=== PATIENT | female | born 1930 | race Caucasian/White ===

== ENCOUNTER 2017-01-02 13:55 | Inpatient (IN) | payer MEDICARE, OTHER ==
[2017-01-02] VITALS (21 sets, daily range): BP systolic 103–146; BP diastolic 53–113; PULSE 65–88; RESP 9–25; Ht 152.4 cm; Wt 70.5 kg
[~2017-01-02] VITALS: Ht 152.4 cm; Wt 70.5 kg
[~2017-01-02 13:55] MED LIST: ACET325T33 PO; AZIT250T94 PO
[2017-01-02] MEDS ORDERED: ASPI-664 PO (15:00)
[2017-01-02] MEDS ORDERED: ATEN-51 PO (15:16)
[2017-01-02] MEDS ORDERED: MECL-77 PO (15:16)
[2017-01-02] MEDS ORDERED: ESOM40CA PO (15:16)
[2017-01-02] MEDS ORDERED: LORA1TAB PO (15:16)
[2017-01-02] MEDS ORDERED: DONE5TAB32 PO (15:16)
[2017-01-02] MEDS ORDERED: IRBE1TAB35 PO (15:16)
[2017-01-02] MEDS ORDERED: TRAM50TA2 PO (15:16)
[2017-01-02] MEDS ORDERED: HYDR-906 PO (15:20)
[2017-01-02] MEDS ORDERED: ACET-2047 PO (15:20)
[2017-01-02] MEDS ORDERED: ONDA4DIS4 IV (15:20)
[2017-01-02] MEDS ORDERED: NITROGLYCERIN (IC) 100 MCG/ML INJ ONE (17:20)
[2017-01-02] MEDS ORDERED: HEPARIN 1000 UNITS/ML 10 ML INJ ONE (17:20)
[2017-01-02] MEDS ORDERED: LIDOCAINE 1% (MDV) 20 ML INJ ONE (17:20)
[2017-01-02] MEDS ORDERED: SOD CHLORIDE 0.9% 500 ML ONE (17:21)
[2017-01-02] MEDS ORDERED: VERAPAMIL 5 MG INJ ONE (17:21)
[2017-01-02] MEDS ORDERED: MIDAZOLAM 1 MG/ML 2 ML INJ ONE (17:22)
[2017-01-02] MEDS ORDERED: IODIXANOL LOCM 100 ML BTL ONE ×3 (17:22→18:33)
[2017-01-02] MEDS ORDERED: FENTAnyl 50 MCG/ML VIAL ONE (17:22)
[2017-01-02] MEDS ORDERED: BIVALIRUDIN 250MG /NS 50 ML 50 ML IVPB ONE (18:11)
[2017-01-02] MEDS ORDERED: CLOPIDOGREL 300 MG TAB ONE (18:17)
[2017-01-02] MEDS ORDERED: DIPHENHYDRAMINE 50 MG INJ ONE (18:47)
[2017-01-02] MEDS ORDERED: morphine 2 MG INJ IV PRN (19:30)
[2017-01-02] MEDS ORDERED: ONDANSETRON 4 MG INJ IV PRN (19:30)
[2017-01-02] MEDS ORDERED: ACETAMINOPHEN 325 MG TAB PO PRN (19:30)
[2017-01-02] MEDS ORDERED: ATORVASTATIN 40 MG TAB PO SCH (21:00)
[2017-01-02] MEDS ORDERED: SOD CHLORIDE 0.9% 1,000 ML IV SCH (21:00)
[2017-01-03] VITALS (19 sets, daily range): BP systolic 81–127; BP diastolic 37–68; PULSE 60–87; RESP 13–23
--- NOTE | 2017-01-03 00:37 | OPR ---
Date/Time of Note Date/Time of Note DATE: 01/03/17 TIME: 00:15 Operative Report Free Text/Dictation Procedure Date: 01/02/2017 Procedures Performed: 1)Left heart catheterization with selective left and right coronary angiography. 2)Balloon angioplasty and stenting of the prox obtuse marginal 1 with a Synergy 2.25 x 24 drug eluting stent. 3)Balloon angioplasty and stenting of the prox Circumflex with a Synergy 2.75 x 12 drug eluting stent. Pre-operative Diagnosis:NSTEMI Post-operative Diagnosis:NSTEMI Indications:86 yo F with a h/o HTN who presented with chest/abdominal pain and was found to have an NSTEMI (trop peak 7) with normal EF. Description of Procedure: After informed consent, the patient was brought to the cardiac catheterization lab. The procedure site was prepped and draped in usual manner. The patient was premedicated with versed 0.5 mg and fentanyl 25 mcg. 2mL lidocaine was injected into the left wrist. Next using the posterior wall technique, the 6/5 dominican sheath was inserted into the left radial artery. Next using the JL3.5 and JR4, selective angiography of the left and right coronary arteries were obtained. The pigtail was then advanced into the ventricle and hemodynamics obtained. Left ventricle angiography was not obtained. The decision was made to proceed with PCI of the OM and Cx due to the occlusive nature of the lesions and the pt's NSTEMI. A 6 dominican JL .3.5 guide was advanced and engaged into the left coronary artery. After appropriate anticoagulation and antiplatelets were given, the BMW was attempted to advance past the OM occlusion but was not successful. This wire was then advanced into the Cx and CxPDA. Next the PT 2 LS angioplasty wire was advanced past the OM lesion. Next the 2.0 X 12 balloon was used to dotter the OM vessel and TWAN 1 flow was established. Next the vessel was dilated times 2 at a maximum of 10 delta. Subsequently, the Synergy 2.25 x 24 drug eluting stent was advanced to the lesion and deployed at 11 delta. Next the stent was post dilated with the 2.25 X 8 noncompliant balloon times 4 at a maximum of 14 delta. Next attention was directed to the Cx lesion. The same 2.25 x 8 noncompliant balloon was used to predilate the lesion over the PT2 LS wire times 1 at 12 delta. Next the Synergy 2.75 x 12 drug eluting stent was deployed at 11 delta once the BMW wire was removed. The two stents were not overlapped due to size mismatch. The Cx stent was dilated with a 3.0 x 8 balloon times 2 at a maximum of 12 at Final angiography revealed TWAN 3 flow, no edge dissection, and appropriate stent expansion of both stents. Next all equipment was removed and hemostasis was achieved by TR band. Findings: Anatomy/Hemodynamics: Left main:normal LAD:mid 50%, distal 60-70% Diagonal: very small diffusely disease vessel Circumflex: codominant vessel with prox 90% Obtuse marginal 1 : prox 100% CxPDA: normal RCA:small, codominant vessel with diffuse sequential up to 90% disease mid to distal followed by chronic total occlusion at the bifurcation and left-right collaterals LV angiography: not done LV-Ao: no gradient LVEDP:6 mmHg Contrast used: 150 mL Fluoroscopy time: 16 min Medications used: Radial cocktail: 2000 units heparin, 200 NTG, 2.5 verapamil Versed 1mg Fentanyl 25 mcg ASA 325mg plavix 600mg Angiomax bolus plus drip NTG IC 200 x 2 Equipment used: 6 dominican JL 3.5 guide BMW and PT 2 LS angioplasty wire 2 x 12 balloon Synergy 2.25 x 24 drug eluting stent (OM) Synergy 2.75 x 12 drug eluting stent (Cx) 2.25 x 8 and 3.0 x 8 noncompliant balloon Assessment: NSTEMI s/p PCI of occluded proximal OM and severely diseased proximal Cx Intermediate LAD disease Diffuse RCA disease with distal 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
[2017-01-03 07:50] LABS: ADD SCAN DIFF NO
[2017-01-03 08:02] LABS: BASOPHILS % 0.2 % (0.0-2.0); EOSINOPHILS # 0.1 10^3/ul (0.0-0.5); EOSINOPHILS % 0.8 % (0.0-7.0); HEMATOCRIT 36.9 % (37.0-47.0); HEMOGLOBIN 12.1 g/dl (12.0-16.0); LYMPHOCYTES # 2.4 10^3/ul (0.8-2.9); LYMPHOCYTES % 24.3 % (15.0-51.0); MEAN CORPUSCULAR HEMOGLOBIN 32.5 pg (29.0-33.0); MEAN CORPUSCULAR HGB CONC 32.8 g/dl (32.0-37.0); MEAN CORPUSCULAR VOLUME 99.2 fl (82.0-101.0); MEAN PLATELET VOLUME 11.2 fl (7.4-10.4); MONOCYTE # 0.9 10^3/ul (0.3-0.9); MONOCYTES % 8.9 % (0.0-11.0); NEUTROPHIL # 6.5 10^3/ul (1.6-7.5); NEUTROPHILS % 65.5 % (39.0-77.0); PLATELET COUNT 236 10^3/UL (140-415); RED BLOOD COUNT 3.72 10^6/ul (4.20-5.40); RED CELL DISTRIBUTION WIDTH 13.2 % (11.5-14.5); WHITE BLOOD COUNT 9.9 10^3/ul (4.8-10.8)
[2017-01-03 08:15] LABS: CALCIUM 8.9 mg/dl (8.4-10.2); CREATININE 0.54 mg/dl (0.44-1.00); MAGNESIUM 1.8 mg/dl (1.7-2.5); POTASSIUM 3.7 mmol/L (3.5-5.1)
--- NOTE | 2017-01-03 08:50 | HP ---
DATE OF ADMISSION: 01/02/2017 CHIEF COMPLAINT: Non-ST elevation myocardial infarction. HISTORY OF PRESENT ILLNESS: This is an 86-year-old female with a past medical history of hypertensi on, history of GERD, history of vertigo, history of dementia, history of dyslipidemia who presents t o an outside hospital at [place] with nf0cyaduiny of epigastric pain. The patient stated that she has had ongoing epigastric pain for years, and which she has had previous workup for dyspepsia, which has been negative. However, over the last several days the pain has gotten worse and as a res ult she came to the emergency room for evaluation. Upon arrival to the outside hospital, the patien t had CT scan of the abdomen which showed diverticulosis without diverticulitis, otherwise unremarka ble. The patient, however, did have elevated troponins. She was admitted. The patient was ruled in for non-STEMI as her troponins elevated and peaked at 7. Patient was medically managed and transfe rred over to [facility] where she underwent cardiac catheterization by Dr. Adela cruz. The patient had a PCI with a drug-eluting stent to the proximal obtuse marginal as well as the proximal circumflex. Following the procedure, the patient was admitted to intensive care unit wher e she is resting comfortably without any complications. There has been no report of hemoptysis, hem atemesis or hematochezia. PAST MEDICAL HISTORY: History of hypertension, dyslipidemia, dyspepsia, dementia and anxiety disord er. PAST SURGICAL HISTORY: None. FAMILY HISTORY: Noncontributory. SOCIAL HISTORY: Does not drink, smoke or do drugs. ALLERGIES: None. MEDICATIONS: Have been reviewed and reconciled. REVIEW OF SYSTEMS: A 14-point review of systems was conducted. Pertinent positives stated in HPI, otherwise negative. PHYSICAL EXAMINATION: VITAL SIGNS: Blood pressure is 103/53, respirations 18, pulse 72, temperature 98.6. HEENT: Head is normocephalic. Pupils are reactive to light. NECK: Supple. HEART: Regular rate. LUNGS: Show diminished breath sounds at the base. ABDOMEN: Soft and nontender to palpation without rebound or guarding. EXTREMITIES: Negative for clubbing, cyanosis, no edema. DERMATOLOGIC: No rashes. MUSCULOSKELETAL: No joint effusions. NEUROLOGIC: No focal deficits. The patient's medications have been reviewed. LABORATORY DATA: Currently pending. Laboratory data from the outside hospital shows sodium 139, pot assium ____ , bicarbonate 30, chloride 103, BUN 14, creatinine 0.7. ASSESSMENT AND PLAN: This is an 86-year-old female who presents with: 1. Non-ST elevation myocardial infarction. The patient is status post cardiac catheterization with PCI and DS to the proximal obtuse marginal and proximal circumflex. Plan at this point is to jim carmichael current medical management with aspirin, Plavix, Lipitor, Coreg. Will follow up with cardiologi st, Dr. Conner for any further recommendations. Monitor closely. 2. Hypertension. Blood pressure is currently well controlled. Continue current blood pressure reg imen with Coreg. 3. Dyslipidemia. Continue statin therapy. 4. History of gastroesophageal reflux disease. The patient will be monitored. Would recommend pos sible H2 blockers. 5. Diverticulosis without evidence of diverticulitis. Continue to monitor. Please note I spent 25 minutes of face to face with the patient. The patient is FULL CODE. Dictated By: RUDDY EDWARDS/USMAN Conf#: [id number] DID#: [id number]
[2017-01-03] MEDS ORDERED: CLOPIDOGREL 75 MG TAB PO SCH (09:00)
[2017-01-03] MEDS ORDERED: ASPIRIN 81 MG TAB PO SCH (09:00)
--- NOTE | 2017-01-03 09:28 | CONS ---
Date/Time of Note Date/Time of Note DATE: 01/03/17 TIME: 09:25 Assessment/Plan Assessment/Plan Chief Complaint/Hosp Course NSTEMI: s/p PCI of occluded OM and 90% prox Cx. Doing well CAD: s/p PCI as above. Has investment underwriter of RCA and intermediate LAD disease which can be evaluated if recurrent symptoms as outpt HTN -ok for d/c -ASA 81mg -plavix 75mg -lipitor -coreg Problems: Consultation Date/Type/Reason Admit Date/Time January 02, 2017 at 19:28 Initial Consult Date Type of Consultation: Cardiology 24 HR Interval Summary Free Text/Dictation No o/n events. Chest pain resolved. No SOB. Exam/Review of Systems Vital Signs Vitals Vital Signs Date Time Temp Pulse Resp B/P Pulse Ox O2 Delivery O2 Flow Rate FiO2 01/03/17 08:00 97.9 72 14 111/60 97 Room Air 01/02/17 17:07 2.0 Intake and Output 01/02/17 01/02/17 01/03/17 15:00 23:00 07:00 Intake Total 250 ml 625 ml Output Total 300 ml 220 ml Balance -50 ml 405 ml Exam Constitutional: alert, oriented Psych: no complaints Head: normocephalic Neck: jvd Respiratory: clear to auscultation Cardiovascular: regular rate and rhythm, No edema Gastrointestinal: non-tender, soft Extremities: normal pulses Neurological: nl mental status, nl speech Results Result Diagram: 01/03/17 0735 01/03/17 0735 Results 24 hrs Laboratory Tests Test 01/03/17 07:35 White Blood Count 9.9 Red Blood Count 3.72 L Hemoglobin 12.1 Hematocrit 36.9 L Mean Corpuscular Volume 99.2 Mean Corpuscular Hemoglobin 32.5 Mean Corpuscular Hemoglobin Concent 32.8 Red Cell Distribution Width 13.2 Platelet Count 236 Mean Platelet Volume 11.2 H Neutrophils % 65.5 Lymphocytes % 24.3 Monocytes % 8.9 Eosinophils % 0.8 Basophils % 0.2 Nucleated Red Blood Cells % 0.0 Neutrophils # 6.5 Lymphocytes # 2.4 Monocytes # 0.9 Eosinophils # 0.1 Basophils # 0.0 Nucleated Red Blood Cells # 0.0 Sodium Level 137 Potassium Level 3.7 Chloride Level 105 Carbon Dioxide Level 28 Anion Gap 8 Blood Urea Nitrogen 13 Creatinine 0.54 Glucose Level 100 Calcium Level 8.9 Magnesium Level 1.8 Medications Medications Current Medications Miscellaneous Information (* Miscellaneous Pharmacy Order) HOLD all METFORMIN ... ONCE XX Last administered on 01/02/17 19:30; Admin Dose 1 EA; Start at 19:30; Stop 01/04/17 at 19:29 Acetaminophen (Tylenol Tab) 650 mg Q4H PRN PO NON-CARDIAC PAIN LEVEL (1-3); Start 01/02/17 at 19:30 Morphine Sulfate (morphine) 2 mg Q2H PRN IV FOR NON CARDIAC PAIN (4-10) Last administered on 01/03/17 01:46; Admin Dose 2 MG; Start 01/02/17 at 19:30 Ondansetron HCl 4 mg 4 mg Q4H PRN IV NAUSEA AND/OR VOMITING; Start 01/02/17 at 19:30 Sodium Chloride (NS) 1,000 ml @ 75 mls/hr [id number] IV Last administered on 01/02 22:18; Admin Dose 75 MLS/HR; Start 01/02/17 at 21:00; Stop 01/03/17 at 20: 59 Aspirin (Aspirin) 81 mg DAILY PO Last administered on 01/03/17 08:40; Admin Dose 81 MG; Start 01/03/17 at 09:00 Clopidogrel Bisulfate (plaVIX) 75 mg DAILY PO Last administered on 01/03/17 08 :40; Admin Dose 75 MG; Start 01/03/17 at 09:00 Carvedilol (Coreg) 6.25 mg BID PO Last administered on 01/03/17 08:40; Admin Dose 6.25 MG; Start 01/02/17 at 21:00 Atorvastatin Calcium (Lipitor) 40 mg HS PO Last administered on 01/02/17 22:19 ; Admin Dose 40 MG; Start 01/02/17 at 21:00 STEPHANY SWAIN January 03, 2017 09:28
--- NOTE | 2017-01-03 17:35 | RADRPT ---
Vent Rate: 75 bpm RR Interval: [address] Interval: 154 msec QRS Duration: 76 msec QT Interval: 420 msec QTC Interval: 469 msec P-R-T Theodore: 57 - -2 - 71 degrees Normal sinus rhythm Normal ECG Electronically Signed By: Luis Antonio Gomes [id number]
--- NOTE | 2017-01-04 08:42 | DS ---
DATE OF ADMISSION: 01/02/2017 DATE OF DISCHARGE: 01/03/2017 HOSPITAL COURSE: This is an 86-year-old female with a past medical history of hypertension, GERD, v ertigo, history of dementia, dyslipidemia, presents to outside hospital with episodes of epigastric pain. The patient during that hospital course was ruled in for non-STEMI. She was medically managed and subsequently transferred over to [facility] where she underwent cardiac jose maria terization, had percutaneous coronary intervention to the obtuse marginal and proximal circumflex. The patient following the procedure was in the intensive care unit where she was monitored without a ny complications. The patient's laboratory data was also stable and showed no evidence of any acute kidney injury. Currently, at this time, the patient will be discharged home, where she will follow up with her primary care physician and civil engineering project manager in 1 week's time. FINAL DIAGNOSES: 1. Non-ST elevation myocardial infarction, status post percutaneous coronary intervention to the ob tuse marginal circumflex. 2. Hypertension. 3. Dyslipidemia. 4. History of gastroesophageal reflux disease. 5. Diverticulosis. FINAL MEDICATIONS: Patient will be discharged with 1. Aspirin 81 mg daily. 2. Plavix 75 mg daily. 3. Coreg 6.25 mg p.o. b.i.d. 4. Lipitor 40 mg daily. 5. The patient will resume home medications of Tylenol. 6. Meclizine. 7. Lorazepam. 8. Tramadol. At the time of discharge, the patient is stable, in no acute distress. Please note I spent over 40 minutes of time preparing patient's discharge. Dictated By: RUDDY EDWARDS/USMAN Conf#: [id number] DID#: [id number]
== END 2017-01-03 11:30 | disposition home or self-care (01) | DRG 247 ==
LOC: CCL 13:55 → ICU 19:28
PROVIDERS: ADMIT Internal Medicine Interventional Cardiology; ATTEND Internal Medicine Interventional Cardiology
PROC: 027035Z Dilation of Coronary Artery, One Artery with Two Drug-eluting Intraluminal Devices, Percutaneous Approach (ICD-10-PCS; principal; 2017-01-03)
PROC: 4A023N7 Measurement of Cardiac Sampling and Pressure, Left Heart, Percutaneous Approach (ICD-10-PCS; 2017-01-03)
DX: I21.4 Non-ST elevation (NSTEMI) myocardial infarction (principal); I10 Essential (primary) hypertension; I25.10 Atherosclerotic heart disease of native coronary artery without angina pectoris; E78.5 Hyperlipidemia, unspecified; K57.90 Diverticulosis of intestine, part unspecified, without perforation or abscess without bleeding; E87.6 Hypokalemia; Z79.82 Long term (current) use of aspirin
CPT/HCPCS: 80048; 83735; 85025; 93005; C1725; C1769; C1874; C1887; J0583; J1200; J1644; J2250; J2270; J3010; J7030; J7040; Q9967